=== PATIENT | male | born 1980 ===

== ENCOUNTER 2022-06-15 19:24 | Inpatient (IN) | payer OTHER ==
[~2022-06-15] VITALS: Ht 170.2 cm; Wt 66.2 kg
[2022-06-15 23:09] LABS: U Amphetamine Screen DETECTED; U Benzodiazapine Screen DETECTED; U Cannabinoids Screen DETECTED; U Methamphetamine Screen DETECTED
[2022-06-15 23:10] LABS: U Barbituate Screen Not Detected; U Buprenorphine Screen Not Detected; U Cocaine Screen Not Detected; U Methadone Screen Not Detected; U Opiates Screen Not Detected; U Oxycodone Screen Not Detected; U Phencyclidine Screen Not Detected; U Propoxyphene Screen Not Detected
[2022-06-15 23:11] LABS: BASOPHILS ABSOLUTE AUTO 0.08 K/mm3 (0.00-0.23); BASOPHILS PERCENT AUTO 0 % (0-2); EOSINOPHILS ABSOLUTE AUTO 0.01 K/mm3 (0.00-0.68); EOSINOPHILS PERCENT AUTO 0 % (0-6); Hematocrit 42.6 % (37.0-53.0); Hemoglobin 14.5 g/dL (13.5-17.5); IMMATURE GRAN ABSOLUTE AUTO 0.07 K/mm3 (0.00-0.10); IMMATURE GRAN PERCENT AUTO 0 % (0-1); LYMPHOCYTES ABSOLUTE AUTO 2.07 K/mm3 (0.84-5.20); LYMPHOCYTES PERCENT AUTO 10 % (21-46); MONOCYTES ABSOLUTE AUTO 1.29 K/mm3 (0.16-1.47); MONOCYTES PERCENT AUTO 6 % (4-13); Mean Corpuscular Volume 94 fL (80-100); Mean Platelet Volume 9.3 fL (9.1-12.4); NEUTROPHILS ABSOLUTE AUTO 16.63 K/mm3 (1.96-9.15); NEUTROPHILS PERCENT AUTO 83 % (41-73); Platelet Count 362 K/mm3 (150-400); RDW Coefficient Variation 12.3 % (11.7-14.2); RDW Standard Deviation 42.7 fL (35.1-46.3); Red Blood Cell Count 4.53 M/mm3 (4.30-5.90); White Blood Cell Count 20.15 K/mm3 (4.00-11.30)
[2022-06-15 23:25] LABS: International Normalized Ratio 1.13; Prothrombin Time Results 11.8 Sec (9.7-11.5)
[2022-06-15 23:42] LABS: Magnesium, Blood 1.7 mg/dL (1.6-2.4); Thyroid Stimulating Hormone 0.626 uIU/mL (0.360-4.800)
[2022-06-15 23:48] LABS: Albumin, Blood 3.1 g/dL (3.4-5.0); Albumin/Globulin Ratio 0.7 (0.8-1.8); Bilirubin, Total 1.8 mg/dL (0.1-1.0); Bun/Creatinine Ratio 27.4 (12.0-20.0); Calcium, Blood 8.1 mg/dL (8.5-10.1); Creatinine, Blood 0.62 mg/dL (0.60-1.20); Globulin, Blood 4.2 g/dL (2.2-4.0); Phosphorus, Blood 2.3 mg/dL (2.5-4.9); Potassium, Blood 3.7 mmol/L (3.5-5.5); Total Protein, Blood 7.3 g/dL (6.4-8.2)
[2022-06-16 00:02] LABS: Creatine Kinase MB Index 0.6 (0.0-4.0)
[2022-06-16 04:12] LABS: BASOPHILS ABSOLUTE AUTO 0.08 K/mm3 (0.00-0.23); BASOPHILS PERCENT AUTO 1 % (0-2); EOSINOPHILS ABSOLUTE AUTO 0.05 K/mm3 (0.00-0.68); EOSINOPHILS PERCENT AUTO 0 % (0-6); Hematocrit 40.9 % (37.0-53.0); Hemoglobin 13.9 g/dL (13.5-17.5); IMMATURE GRAN ABSOLUTE AUTO 0.07 K/mm3 (0.00-0.10); IMMATURE GRAN PERCENT AUTO 0 % (0-1); LYMPHOCYTES ABSOLUTE AUTO 2.67 K/mm3 (0.84-5.20); LYMPHOCYTES PERCENT AUTO 15 % (21-46); MONOCYTES ABSOLUTE AUTO 1.46 K/mm3 (0.16-1.47); MONOCYTES PERCENT AUTO 8 % (4-13); Mean Corpuscular HGB 32.3 pg (26.0-34.0); Mean Corpuscular Volume 95 fL (80-100); Mean Platelet Volume 9.6 fL (9.1-12.4); NEUTROPHILS ABSOLUTE AUTO 13.37 K/mm3 (1.96-9.15); NEUTROPHILS PERCENT AUTO 76 % (41-73); Platelet Count 326 K/mm3 (150-400); RDW Coefficient Variation 12.3 % (11.7-14.2); RDW Standard Deviation 43.4 fL (35.1-46.3); Red Blood Cell Count 4.31 M/mm3 (4.30-5.90)
[2022-06-16 05:13] LABS: Albumin, Blood 2.9 g/dL (3.4-5.0); Albumin/Globulin Ratio 0.8 (0.8-1.8); Bilirubin, Total 1.5 mg/dL (0.1-1.0); Bun/Creatinine Ratio 31.1 (12.0-20.0); Creatinine, Blood 0.61 mg/dL (0.60-1.20); Globulin, Blood 3.5 g/dL (2.2-4.0); Magnesium, Blood 1.9 mg/dL (1.6-2.4); Potassium, Blood 4.5 mmol/L (3.5-5.5); Total Protein, Blood 6.4 g/dL (6.4-8.2)
--- NOTE | 2022-06-16 17:27 | NUR ---
SHIFT SUMMARY: ASSUMED CARE OF PT AT 0700 THIS AM. NO ACUTE CHANGES. SEE VS, ASSESSMENT AND ALCOHOL WITHDRAWL ASSESSMENT. PT MEDICATED PER EMAR AND TOLERATED WELL. ON CONTINUOUS SPO2 AND TELE MONITORING. PT DECLINED SHOWER OR BATH TODAY, PT DECLINED VISIT WITH LABEL PASTER AND DENTAL HYGENIST WELL. PT RECEIVED IVF, ABX, THIAMINE/FOLATE, ATIVAN AND LIBRIUM PER EMAR. PT HAS SLEPT MOST OF THE SHIFT. PT ABLE TO USE CALL LIGHT FOR NEEDS, CALL LIGHT IN REACH, WILL CONTINUE TO MONITOR AND GIVE REPORT TO NOC SHIFT RN.
[2022-06-17 04:04] LABS: BASOPHILS ABSOLUTE AUTO 0.03 K/mm3 (0.00-0.23); BASOPHILS PERCENT AUTO 0 % (0-2); EOSINOPHILS ABSOLUTE AUTO 0.26 K/mm3 (0.00-0.68); EOSINOPHILS PERCENT AUTO 2 % (0-6); Hematocrit 37.3 % (37.0-53.0); Hemoglobin 12.4 g/dL (13.5-17.5); IMMATURE GRAN ABSOLUTE AUTO 0.03 K/mm3 (0.00-0.10); IMMATURE GRAN PERCENT AUTO 0 % (0-1); LYMPHOCYTES ABSOLUTE AUTO 2.59 K/mm3 (0.84-5.20); LYMPHOCYTES PERCENT AUTO 22 % (21-46); MONOCYTES ABSOLUTE AUTO 0.84 K/mm3 (0.16-1.47); MONOCYTES PERCENT AUTO 7 % (4-13); Mean Corpuscular HGB 32.3 pg (26.0-34.0); Mean Corpuscular HGB Conc 33.2 g/dL (31.5-36.5); Mean Corpuscular Volume 97 fL (80-100); Mean Platelet Volume 9.8 fL (9.1-12.4); NEUTROPHILS ABSOLUTE AUTO 8.27 K/mm3 (1.96-9.15); NEUTROPHILS PERCENT AUTO 69 % (41-73); Platelet Count 259 K/mm3 (150-400); RDW Coefficient Variation 12.4 % (11.7-14.2); RDW Standard Deviation 44.3 fL (35.1-46.3); Red Blood Cell Count 3.84 M/mm3 (4.30-5.90); White Blood Cell Count 12.02 K/mm3 (4.00-11.30)
[2022-06-17 04:26] LABS: Albumin, Blood 2.5 g/dL (3.4-5.0); Albumin/Globulin Ratio 0.7 (0.8-1.8); Bilirubin, Total 0.9 mg/dL (0.1-1.0); Bun/Creatinine Ratio 15.9 (12.0-20.0); Calcium, Blood 7.8 mg/dL (8.5-10.1); Creatinine, Blood 0.57 mg/dL (0.60-1.20); Globulin, Blood 3.4 g/dL (2.2-4.0); Total Protein, Blood 5.9 g/dL (6.4-8.2)
--- NOTE | 2022-06-17 05:16 | NUR ---
Assumed care of pt at 1900. A/Ox4, cooperative with care and calls appropriately. C/o headache during the night, PRN medication with good relief. Slightly weak in BLE. CIWA's 6-14 during night with minimal medication needed. Maintains over 92% on 2L NC, LS coarse t/o with productive cough. Loud snoring and brief episodes of apnea noted, patient reports hx of sleep apnea, patient maintained sats during that time. SR 70's on tele, denies CP/pressure, VSS. Patient very tearful during the night, stating was sober until mother , worries over what to do when DC, how to pay his phone bill, worries about being a burden to staff and feels bad that staff are consistently telling him to shower. States he knows he needs one but just doesn't feel well enough right now. Therapeutic communication and touch given to patient that really helped. financial services technician consult placed. Will report to karena COLLADO.
[2022-06-17] MEDS ORDERED: BUPR100 PO (05:53)
[2022-06-17] MEDS ORDERED: Naltrexone HCl50 MG PO (05:54)
[2022-06-17] MEDS ORDERED: BACLOFEN5 M1 PO (05:55)
[2022-06-17] MEDS ORDERED: GABA300 PO (05:56)
[2022-06-17 08:10] LABS: HBSAG SCREEN Negative (Negative); HCV ANTIBODY Reactive (Non Reactive); HIV AB/P24 AG SCREEN Non Reactive (Non Reactive)
--- NOTE | 2022-06-17 10:45 | NUR ---
update/kratum: Pt frusterated with physician and staff. States that he needs to take his Kratum and that it is perfectly safe. States that medical staff don't have any understanding of Kratum and that he knows more than us on this. Explained to the patient that we can not safely allow him to take Kratum, that evidance shows it is not safe or healthy. Pt argues this. Pt also states that staff have told him he would be here for weeks. Reiterated that he is not going to be held here for weeks, that he would be here until he was through his withdrawl process, that could take up to a week. Pt then states that he is going to be here for "a month". Again told him no. Pt continues to argue about discharge, medications, kratum and treatments. Informed the patient that he could stay here and continue to recieve our treatment for his withdrawls or he could leave [facility]. Pt staying at this time.
--- NOTE | 2022-06-17 12:43 | NUR ---
"Spiritual Care | Nurse consult request Pt. is sitting up in his bed, and welcomes my visit. Pt. is unsettled because of his hospitalization, and verbalizes that he has contacts in [place] who can come and get him, and care for him. Listen with empathy and a calming presence. Pt. verbalizes that he has AA contacts in [place]. Spent a significant amount of time facilitation a life review. The Pt. verbalizes that he is seeking an advocate regarding his care and discharge. Seek to normalize the Pt. experience and anchor the Pt. in his progress in the pass couple of days. Pt. displays evidence of a more settled disposition, but this coper hand is concerned about how compliant he will continue to be regarding his care, the longer time passes. Prayed with the Pt. Pt. verbalized gratitude for the spiritual care visit. Updated the PCU Charge nurse of the case."
--- NOTE | 2022-06-17 12:52 | NUR ---
AM NOTE: PATIENT ALERT AND ORIENTED X2-3. ABLE TO TELL ME HIS NAME AND . THINKS HE IS [facility]. VERY ANGRY AND AGGITATED WITH CARES AND DISCUSSING WITHDRAWL. SBA TO BATHROOM, SHOWER THIS AM. N/T TO LEFT ARM/FINGERS. CIWA SCORES 4-9 THIS MORNING/AFTERNOON. ON ROOM AIR SATING ABOVE 95%. LUNGS SOUNDING COARSE. ABX GIVEN. OCCASIONAL COUGH. TELE SHOWING SR WITH HR 70-90'S. BP STABLE. NO SIGNS OF EDEMA. DENIES CHEST PAIN/PRESSURE/PALPITATIONS. PPP. POOR APPEATITE. EATING SMALL AMOUNTS. USING URINAL TO VOID. BOWEL TONES PRESENT. SCATTERED BRUISING THROUGHOUT. PATIENT VERY ANGRY ASKING TO TALK WITH DOCTOR. WANTING TO DISCUSS KRATUM. PATIENT STATES HE IS NOT GETTING TREATED FOR HIS KRATUM WITHDRAWL AND NEEDS TO BE PRESCRIBED HIS KRATUM. PATIENT WANTING TO LEAVE HOPSPITAL BUT NOT WANTING TO LEAVE AMA. PATIENT WANTING TO BE DISCHARGED TODAY. PATIENT DENYING THAT HE IS GOING THROUGH WITHDRAWL. VERY AGGITATED WITH STAFF WHEN DISCUSSING THE FACT THAT THE PATIENT CANNOT TAKE KRATUM HERE AND THAT IT WILL NOT BE PRESCRIBED TO PATIENT. VERY AGGITATED AND ANGRY POST CONVERSATION. AT FIRST PATIENT WILLING TO TAKE LIBRIUM AND ATIVAN. UPON BRINGING MEDICATION IN ROOM PATIENT DENIES THE NEED FOR MEDICATION AND STATES "I AM NOT GOING THROUGH WITHDRAWL, SO I WILL NOT TAKE THAT MEDICATION LONG THE DOCTOR IS PRESCRIBING IT FOR WITHDRAWL". PATIENT STATES "I WILL JUST ANSWER ALL THE WITHDRAWL QUESTIONS HOW YOU WANT SO IT SHOWS I AM NOT GOING THROUGH WITHDRAWL AND I CAN BE DISCHARGED". PATIENT WILLING TO TALK WITH YOANDY. YOANDY TO ROOM TO DISCUSS SITUATION WITH PATIENT. PATIENT SEEMS TO BE CALMED DOWN. TALKING WITH FRIEND ON PHONE. DENIES NEEDS. NS INFUSING AT 100 ML/HR.
--- NOTE | 2022-06-17 13:11 | NUR ---
PATIENT CALLED THIS RN INTO ROOM TO ASK FOR VITAL SIGNS TO BE TAKEN. BP TAKEN AND PATIENT STATES, "IF MY VITAL SIGNS ARE NORMAL I CAN BE DISCHARGED". THIS RN EXPLAINED THAT EVEN IF VITAL SIGNS ARE NORMAL THAT DOES NOT MEAN PATIENT CAN BE SAFELY DISCHARGED AT THIS TIME. PATIENT UPSET WITH RN ANSWER AND CALLED EX TO TALK TO HER ON PHONE. UPON LEAVING PATIENT STATES. "IM CALLING MY AMA DEPARTURE AFTER THIS PHONE CALL".
--- NOTE | 2022-06-17 14:12 | NUR ---
PATIENT REQUESTING TO LEAVE AMA. AMA FORM FILLED OUT WITH PATIENT AND RISK OF LEAVING DISCUSSED WELL WITHDRAWL SIGNS AND SYMPTOMS AND RISKS FOR LEAVING THE HOSPITAL WHILE WITHDRAWLING. SEE AMA FORM FOR OTHER RISKS DISCUSSED. PATIENT ASKED THIS RN TO CALL FRIEND ANGI KAUFMAN TO ASK FOR RIDE. THIS RN CALLED ANGI SHAE WHO STATED HE WAS GOING TO PICK PATIENT UP. PATIENT GAVE THIS RN PERMISSION TO DISCUSS HOSPITAL STAY WITH FRIEND ANGI. IV'S REMOVED WNL. PATIENT GATHERED ITEMS INCLUDING ABX PRESCRIPTION WRITTEN BY DR. GILLIS. DR. GILLIS AWARE OF PATIENT LEAVING AMA.
== END 2022-06-17 14:17 | disposition left against medical advice (07) | DRG 894 ==
LOC: PCU 19:24
PROVIDERS: Internal Medicine; ADMIT Student in an Organized Health Care Education/Training Program
DX: F10.231 Alcohol dependence with withdrawal delirium (principal); J18.9 Pneumonia, unspecified organism; M62.82 Rhabdomyolysis; E44.0 Moderate protein-calorie malnutrition; G93.40 Encephalopathy, unspecified; F15.10 Other stimulant abuse, uncomplicated; F12.10 Cannabis abuse, uncomplicated; E83.39 Other disorders of phosphorus metabolism; F17.210 Nicotine dependence, cigarettes, uncomplicated; F19.10 Other psychoactive substance abuse, uncomplicated; B96.3 Hemophilus influenzae [H. influenzae] as the cause of diseases classified elsewhere; B96.5 Pseudomonas (aeruginosa) (mallei) (pseudomallei) as the cause of diseases classified elsewhere; Z59.00 Homelessness unspecified
CPT/HCPCS: 36415; 71046; 80053; 82140; 82550; 82553; 83690; 83735; 84100; 84145; 84443; 85025; 85610; 86803; 87040; 87070; 87077; 87185; 87186; 87205; 87340; 87389; 87449; 94664; 94762; A9270; J0456; J0696; J1650; J2060; J2405; J3411; J7030; J7050